=== PATIENT | male | born 1960 | race Hispanic/Latino ===

== ENCOUNTER 2024-12-19 23:29 | Emergency (ER) | payer OTHER ==
[~2024-12-19] VITALS: Ht 160 cm; Wt 90.4 kg
--- NOTE | 2024-12-19 23:54 | ERN ---
General Chief Complaint: Shortness of Breath Stated Complaint: SOB Time Seen by MD: 23:34 Source: patient History of Present Illness Initial Comments Patient is a 64-year-old male with a past medical history of GERD type 2 diabetes and benign prostatic hypertrophy who for the last two nights has found himself waking up short of breath. He recovers from the shortness of breath very quickly. He also noticed that his hands tingle a little bit when these episodes happen. He does not know if he snores at night but he thinks it is possible. No other associated symptoms no chest pain, no lightheadedness no fevers no coughs. Nothing has changed in his life in the last two days. Past Medical History Past Medical History: Diabetes-Type II, GERD Medical History Other: BPH Past Surgical History: None Constitutional: (-) chills, (-) diaphoresis, (-) fever, (-) malaise, (-) weakness, (-) other documentation EENTM: (-) eye pain, (-) blurred vision, (-) tearing, (-) double vision, (-) ear pain, (-) ear discharge, (-) nose pain, (-) nose congestion, (-) throat pain, (-) Throat swelling, (-) mouth pain, (-) tooth pain, (-) mouth swelling, (-) other documentation Respiratory: (-) cough, (-) orthopnea, (-) short of breath, (-) stridor, (-) wh eezing, (-) other documentation Cardiovascular: (-) chest pain, (-) edema, (-) palpitations, (-) syncope, (-) dyspnea on exertion, (-) other documentation Gastrointestinal/Abdominal: (-) nausea, (-) vomiting, (-) diarrhea, (-) abdominal pain, (-) abdominal distention, (-) constipation, (-) rectal bleeding, (-) dark stool/melena, (-) other documentation Genitourinary: (-) penile discharge, (-) dysuria, (-) frequency, (-) hematuria, (-) pain, (-) other documentation Musculoskeletal: (-) Neck pain, (-) back pain, (-) Flank Pain, (-) joint pain, (-) joint swelling, (-) muscle pain, (-) muscle stiffness, (-) gout, (-) other documentation Skin: (-) laceration, (-) contusion, (-) abrasion, (-) abscess, (-) rash, (-) change in color, (-) change in hair, (-) change in nails, (-) diaphoresis, (-) dryness, (-) other documentation Physical Exam General Appearance: (+) no apparent distress Orientation: (+) oriented x 3 Head/Face Trauma: No Eye: bilateral eye normal inspection, bilateral eye PERRL, bilateral eye EOMI Ear, Nose, Throat: (+) hearing grossly normal, (+) normal ENT inspection, (+) moist mucous membraine Neck: (+) normal inspection, (+) supple, (+) full range of motion, (+) no JVD Respiratory: (+) chest non-tender, (+) lungs clear, (+) well ventilated Heart: (+) regular, (+) no gallop Vascular: (+) no edema, (+) normal peripheral pulse, (+) no JVD Gastrointestinal: (+) soft, (+) non-tender, (+) no organomegaly, (+) bowel sound present Extremities: (+) normal range of motion, (+) non-tender Neurologic/Psychiatric: (+) normal speech, (+) no motor defecits Results Laboratory and Microbiology Lab and Micro Result Laboratory Tests Test 12/19/24 00:08 White Blood Count 5.5 K/uL (4.8-10.8) Red Blood Count 4.26 MIL/uL (4.50-6.20) L Hemoglobin 13.6 g/dL (14.0-18.0) L Hematocrit 39.8 % (42-54) L Mean Corpuscular Volume 93.4 fL (79-99) Mean Corpuscular Hemoglobin 31.9 pg (27.0-33.0) Mean Corpuscular Hemoglobin Concent 34.2 g/dL (32.0-36.0) Red Cell Distribution Width 12.9 % (11.0-15.5) Platelet Count 118 K/uL (130-400) L Mean Platelet Volume 11.5 fL (7.5-10.5) H Immature Granulocyte % (Auto) 0.4 % (0-1) Neutrophils (%) (Auto) 49.3 % (40.0-77.0) Lymphocytes (%) (Auto) 34.7 % (21.0-51.0) Monocytes (%) (Auto) 8.2 % (3.0-13.0) Eosinophils (%) (Auto) 6.9 % (0.0-8.0) Basophils (%) (Auto) 0.5 % (0.0-5.0) Neutrophils # (Auto) 2.7 K/uL (1.8-7.7) Lymphocytes # (Auto) 1.9 K/uL (1.0-4.8) Monocytes # (Auto) 0.5 K/uL (0.1-1.0) Eosinophils # (Auto) 0.38 K/uL (0.00-0.70) Basophils # (Auto) 0.03 K/uL (0.00-0.20) Absolute Immature Granulocyte (auto 0.02 K/uL (0-1) Nucleated Red Blood Cells 0.0 % (0.0-0.19) Sodium Level 140 mmol/L (136-145) Potassium Level 3.8 mmol/L (3.5-5.1) Chloride Level 106 mmol/L (101-111) Carbon Dioxide Level 26 mmol/L (21-32) Blood Urea Nitrogen 12 mg/dL (7-18) Creatinine 0.7 mg/dL (0.5-1.3) Glomerular Filtration Rate Calc 104 mL/min (>90) Random Glucose 106 mg/dL (70-105) H Total Calcium 8.7 mg/dL (8.5-10.1) Troponin I High Sensitivity 5 ng/L (4-75) B-Type Natriuretic Peptide 15 pg/mL (0-100) MDM The patient has a classic history for sleep apnea and a classic body type for sleep apnea. The fact that his shortness of breath is extremely brief and he recovers very quickly from it when he wakes up is also consistent with sleep apnea. I will get some cardiac enzymes electrolytes CBC EKG and if they are all normal I will discharge the patient from the hospital. Patient's cardiac enzymes are normal. Chest x-ray does not show any pneumonia. Chemistry panel is normal as is a CBC. I will discharge him. ED Course Orders Procedure Category Date Status Time 12 Lead Ekg Tracing- EKG 12/19/24 Logged Technical 23:37 B-Type Natriuretic LAB 12/19/24 Complete Peptide 23:54 Basic Metabolic Panel LAB 12/19/24 Complete 23:54 Cbc With Differential LAB 12/19/24 Complete 23:54 Troponin I High LAB 12/19/24 Complete Sensitivity 23:54 Chest 1vw RAD 12/19/24 Taken 23:54 Vital Signs Date Time Temp Pulse Resp B/P (MAP) Pulse Ox O2 Delivery O2 Flow Rate FiO2 12/19/24 23:35 97.9 68 18 122/80 96 Room Air* 0 21 12/19/24 23:31 97.9 68 8 122/80 98 Room Air DX & DISP Disposition: Discharge Departure Impression: Primary Impression: Sleep apnea Condition: Stable Additional Instructions: Your cardiac enzymes are normal as are your electrolytes. I am suspicious that you may have sleep apnea. You should be tested for this and get it treated as untreated sleep apnea can cause cardiac problems and blood pressure problems. KACIE RSOSI MD December 19, 2024 23:54
[2024-12-20 00:23] LABS: CREATININE 0.7 mg/dL (0.5-1.3); POTASSIUM 3.8 mmol/L (3.5-5.1)
[2024-12-20 00:47] LABS: B-TYPE NATRIURETIC PEPTIDE 15 pg/mL (0-100)
[2024-12-20 01:00] LABS: BASOPHILS # (AUTO) 0.03 K/uL (0.00-0.20); BASOPHILS % (AUTO) 0.5 % (0.0-5.0); EOSINOPHILS # (AUTO) 0.38 K/uL (0.00-0.70); EOSINOPHILS % (AUTO) 6.9 % (0.0-8.0); HEMATOCRIT 39.8 % (42-54); IMMATURE GRANULOCYTE ABSOLUTE 0.02 K/uL (0-1); LYMPHOCYTES # (AUTO) 1.9 K/uL (1.0-4.8); LYMPHOCYTES % (AUTO) 34.7 % (21.0-51.0); MEAN CORPUSCULAR HEMOGLOBIN 31.9 pg (27.0-33.0); MEAN CORPUSCULAR HGB CONC 34.2 g/dL (32.0-36.0); MEAN CORPUSCULAR VOLUME 93.4 fL (79-99); MONOCYTES # (AUTO) 0.5 K/uL (0.1-1.0); MONOCYTES % (AUTO) 8.2 % (3.0-13.0); NEUTROPHILS # (AUTO) 2.7 K/uL (1.8-7.7); NEUTROPHILS % (AUTO) 49.3 % (40.0-77.0); PLATELET COUNT (AUTO) 118 K/uL (130-400); RED BLOOD CELL COUNT(AUTO) 4.26 MIL/uL (4.50-6.20); RED CELL DISTRIBUTION WIDTH 12.9 % (11.0-15.5); WHITE BLOOD COUNT (AUTO) 5.5 K/uL (4.8-10.8)
[2024-12-20 01:08] VITALS: BP 122/77; PULSE 64; RESP 18; TEMP 98.4; O2SAT 97
--- NOTE | 2024-12-20 07:48 | EKG ---
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
--- NOTE | 2024-12-20 09:02 | HMCIMG ---
Exam Type: CHEST 1VW Clinical Information: sob Comparison: None Findings: The lungs are clear of infiltrates. The heart is normal in size. The bony and soft tissue structures of the chest are unremarkable. Impression: Clear lungs.
== END 2024-12-20 01:09 | disposition home or self-care (01) ==
LOC: EDH 23:29 → EEVIPCON 23:29 → EDH 12-20 01:09
DX: G47.30 Sleep apnea, unspecified (principal); E11.9 Type 2 diabetes mellitus without complications; K21.9 Gastro-esophageal reflux disease without esophagitis; N40.0 Benign prostatic hyperplasia without lower urinary tract symptoms
CPT/HCPCS: 36415; 71045; 80048; 83880; 84484; 85025; 93005; 99285